=== PATIENT | male | born 1975 | race Caucasian/White ===

== ENCOUNTER → 2020-03-23 11:51 | Outpatient (CLI) | payer OTHER, SELFPAY ==
--- NOTE | 2020-03-23 | DI.MRI.S_ITS ---
PROCEDURE: MR HAND LT WO CON INDICATIONS: Strain of unspecified muscle, fascia and tendon at TECHNIQUE: Noncontrast coronal T1 spin echo and T2 fast spin echo with fat saturation, axial proton density fast spin echo and T2 fast spin echo with fat saturation, sagittal T1 spin echo and STIR through the hand and fingers. COMPARISON: None. FINDINGS: Image quality: Excellent. No fracture identified. Mild carpal joint degeneration. Diffuse interphalangeal degenerative spurring and sclerosis. Marked bowstring appearance of the ring finger flexor digitorum profundus and superficialis tendons, indicating rupture of the A3, probably A2 and A4 pulleys. The flexor tendons themselves appear grossly intact. IMPRESSION: Severe bowstringing appearance of the ring finger in keeping with A3, and probably A2 and A4 danae rupture. Dictated by: Damien Gupta M.D. on 03/23/2020 at 15:11 Approved by: Damien Gupta M.D. on 03/23/2020 at 15:19
== END ==
PROVIDERS: Referring Provider Orthopaedic Surgery; Visit Provider Orthopaedic Surgery
DX: S66.912A Strain of unspecified muscle, fascia and tendon at wrist and hand level, left hand, initial encounter (principal); M19.042 Primary osteoarthritis, left hand
CPT/HCPCS: 73218